=== PATIENT | female | born 1975 | race Caucasian/White ===

== ENCOUNTER 2022-07-20 08:00 | Outpatient (CLI) | payer BC ==
--- NOTE | 2022-07-21 10:47 | XRAY Report ---
PROCEDURE: Ribs w/PA Chest LT INDICATIONS: CONTUSION OF LEFT FRONT WALL OF THORAX TECHNIQUE: 2 views of the left ribs were acquired, along with a single view chest. COMPARISON: None FINDINGS: Surgical changes and devices: None. Bones and chest wall: There is a mildly displaced fracture of the left lateral third rib. No suspicio us bony lesions. Overlying soft tissues appear unremarkable. Lungs and pleura: No pleural effusions or pneumothorax. Lungs appear clear. Mediastinum: Mediastinal contours appear normal. Heart size is normal. IMPRESSION: Left third rib fracture. Reviewed by: Aly Avelar MD on 07/21/2022 10:46 AM PST Approved by: Aly Avelar MD on 07/21/2022 10:46 AM PST Station ID: [id number]
== END 2022-07-20 23:59 | disposition home or self-care (01) ==
LOC: DI.S 08:00
PROVIDERS: ATTEND Emergency Medicine
DX: S22.32XA Fracture of one rib, left side, initial encounter for closed fracture (principal)